=== PATIENT | female | born 1985 | race African-American/Black ===

== ENCOUNTER 2019-08-20 09:29 | Emergency (ER) | payer OTHER ==
[~2019-08-20] VITALS: Ht 177.8 cm; Wt 95.3 kg
[~2019-08-20 09:29] MED LIST: EYE DROP15 ML; NORCO 5-325 TA1 EACH PO; PREDNISONE 20 M20 M1 PO; VISTARIL 25 MG25 M1 PO
[2019-08-20] MEDS ORDERED: GUAIFEN-CODEINE10 ML PO (12:01)
[2019-08-20] MEDS ORDERED: PROAIR HFA8.5 GM INH (12:01)
[2019-08-20] MEDS ORDERED: ZPAK PO (12:01)
[2019-08-20 12:16] VITALS: BP 137/99
== END 2019-08-20 12:19 | disposition home or self-care (01) ==
LOC: ER 09:29
DX: J06.9 Acute upper respiratory infection, unspecified (principal); J45.909 Unspecified asthma, uncomplicated; R10.13 Epigastric pain; F17.210 Nicotine dependence, cigarettes, uncomplicated

== ENCOUNTER 2019-10-23 07:48 | Emergency (ER) | payer OTHER ==
[~2019-10-23] VITALS: Ht 180.3 cm; Wt 105.2 kg
[~2019-10-23 07:48] MED LIST changes: +GUAIFEN-CODEINE10 ML PO; +PROAIR HFA8.5 GM INH; +ZPAK PO
[2019-10-23 08:37] LABS: ABSOLUTE NEUTROPHILS 3.6 thou/uL (1.4-8.2); BASOPHILS 0.3 % (0.0-2.0); EOSINOPHILS 5.9 % (0.0-3.0); HEMOGLOBIN 13.1 gm/dL (12.0-15.0); MCH 29.6 pg (26.0-34.0); MCHC 33.5 g/dL (28.0-37.0); MCV 88.4 fL (80.0-100.0); MONOCYTES 8.2 % (1.0-8.0); PLATELET COUNT 350 thou/uL (150-400); POLYS 45.6 % (36.0-66.0); RBC 4.42 mil/uL (4.20-5.00); RDW 14.3 % (10.5-14.5)
[2019-10-23 08:46] LABS: URINE BILIRUBIN NEGATIVE (Negative); URINE BLOOD TRACE (Negative); URINE CLARITY CLEAR; URINE COLOR YELLOW; URINE GLUCOSE-RANDOM* NEGATIVE (Negative); URINE KETONES NEGATIVE (Negative); URINE LEUKOCYTES-REFLEX NEGATIVE (Negative); URINE NITRITE-REFLEX NEGATIVE (Negative); URINE PROTEIN (DIPSTICK) NEGATIVE (Negative); URINE SPECIFIC GRAVITY 1.025 (1.005-1.035)
[2019-10-23 08:46] LABS: ANION GAP 10 mmol/L (7-16); BUN 11 mg/dL (7-18); CALCIUM 8.1 mg/dL (8.5-10.1); CHLORIDE 105 mmol/L (98-107); CO2 25 mmol/L (21-32); CREATININE 1.1 mg/dL (0.6-1.0); GLUCOSE 88 mg/dL (74-106); POTASSIUM 3.7 mmol/L (3.5-5.1); SODIUM 140 mmol/L (136-145)
[2019-10-23 08:55] LABS: ALBUMIN 3.5 g/dL (3.4-5.0); LIPASE 95 U/L (73-393); SGOT 15 U/L (15-37); SGPT 23 U/L (30-65); TOTAL BILIRUBIN 0.7 mg/dL (<0.1-1.0); TOTAL PROTEIN 7.3 g/dL (6.4-8.2); TROPONIN-I <0.06 ng/mL (<0.06)
[2019-10-23] MEDS ORDERED: TRAMADOL 50 MG50 MG PO (09:46)
[2019-10-23] MEDS ORDERED: PRILOSEC OTC20 MG PO (09:46)
[2019-10-23 10:05] VITALS: BP 129/81
--- NOTE | 2019-10-23 12:56 | EKG ---
[facility] [place] [address] ELECTROCARDIOGRAM REPORT Name: AVIVAORALIA [id number] Admission: 10/23/19 Attend Phys: Discharge: 10/23/19 Date of : 85 Report #: [id number] THIS REPORT FOR: cc: FAM - No family physician/PCP FAM - No family physician/PCP Vincent York MD ~ THIS REPORT FOR: //name// [facility] ED Test Date: 2019-10-23 Test Time: 08:05:37 Pat Name: ORALIA CHICAS Department: Room: Gender: F [employer]ulating Machine Mechanic: PERCY : 1985 Requested By: Adrian Lafleur Order Number: [id number] MD: Vincent York Measurements Intervals Roark Rate: 75 P: 44 SC: 141 QRS: 12 QRSD: 90 T: 9 QT: 381 QTc: 426 Interpretive Statements Sinus rhythm No previous ECG available for comparison Electronically Signed On 10-23-2019 12:54:23 CDT by Vincent York [email or web address] <ELECTRONICALLY SIGNED> By: Vincent York MD 10/23/19 [id number] Vincent York MD /NILDA
== END 2019-10-23 10:06 | disposition home or self-care (01) ==
LOC: ER 07:48
PROVIDERS: Emergency Medicine
DX: N93.8 Other specified abnormal uterine and vaginal bleeding (principal); M62.830 Muscle spasm of back; M54.6 Pain in thoracic spine; M54.5 Low back pain; M25.511 Pain in right shoulder; K21.9 Gastro-esophageal reflux disease without esophagitis; J45.909 Unspecified asthma, uncomplicated; F17.210 Nicotine dependence, cigarettes, uncomplicated

== ENCOUNTER 2019-12-25 10:34 | Emergency (ER) | payer OTHER ==
[~2019-12-25] VITALS: Ht 180.3 cm; Wt 108.9 kg
[~2019-12-25 10:34] MED LIST changes: +PRILOSEC OTC20 MG PO; +TRAMADOL 50 MG50 MG PO
[2019-12-25] MEDS ORDERED: NORCO 5-325 TA1 EAC2 PO (13:41)
[2019-12-25 13:42] VITALS: BP 143/103
== END 2019-12-25 13:42 | disposition home or self-care (01) ==
LOC: ER 10:34
DX: S73.101A Unspecified sprain of right hip, initial encounter (principal); J45.909 Unspecified asthma, uncomplicated; F17.210 Nicotine dependence, cigarettes, uncomplicated; Z79.899 Other long term (current) drug therapy; X58.XXXA Exposure to other specified factors, initial encounter; Y93.89 Activity, other specified; Y92.89 Other specified places as the place of occurrence of the external cause; Y99.8 Other external cause status

== ENCOUNTER 2020-09-28 11:50 | Emergency (ER) | payer OTHER ==
[~2020-09-28] VITALS: Ht 180.3 cm; Wt 108.9 kg
[~2020-09-28 11:50] MED LIST changes: +NORCO 5-325 TA1 EAC2 PO
[2020-09-28] MEDS ORDERED: METHOCARBAMOL500 M2 PO (14:44)
[2020-09-28 14:56] VITALS: BP 128/84
== END 2020-09-28 14:57 | disposition home or self-care (01) ==
LOC: ER 11:50
DX: S39.012A Strain of muscle, fascia and tendon of lower back, initial encounter (principal); S29.019A Strain of muscle and tendon of unspecified wall of thorax, initial encounter; S09.90XA Unspecified injury of head, initial encounter; J45.909 Unspecified asthma, uncomplicated; F17.210 Nicotine dependence, cigarettes, uncomplicated; V49.88XA Car occupant (driver) (passenger) injured in other specified transport accidents, initial encounter; Y93.89 Activity, other specified; Y92.413 State road as the place of occurrence of the external cause; Y99.9 Unspecified external cause status